=== PATIENT | female | born 1970 | race African-American/Black ===

== ENCOUNTER 2018-06-27 10:52 | Emergency (ER) | payer SELFPAY ==
[2018-06-27 11:01] VITALS: BP 141/78; PULSE 78; TEMP 98.3; BMI 24.7
--- NOTE | 2018-06-27 11:49 | PDOC ---
Documentation entered by Fabián Combs SCRIBE, acting as scribe for Shital Humphrey MD. Shital Humphrey MD: This documentation has been prepared by the angelyeGarret Daniel, SCRIBE, under my direction and personally reviewed by me in its entirety. I confirm that the documentation accurately reflects all work, treatment, procedures, and medical decision making performed by me. History of Present Illness - General Chief Complaint: Chest Pain Stated Complaint: CHEST PAIN Time Seen by Provider: 06/27/18 11:16 History Source: Patient Exam Limitations: No Limitations - History of Present Illness Initial Comments: 06/27/18 11:26 The patient is a 47 year old female with no past medical history here today for evaluation of chest pain. Patient reports that her chest pain began last night and continued until this morning. She describes her chest pain as localized to the left side, intermittent lasting a few minutes, and sharp. She reports that she had a similar episode of chest pain a long time ago but notes that she was told that she was healthy. Patient denies headache, lightheadedness. Denies fever, chills. Denies shortness of breath. Denies nausea, vomiting, diarrhea, abdominal pain. Denies lower extremity edema. Allergies: NKA Social history: Patient denies tobacco use. Past History - Past Medical History Allergies/Adverse Reactions: Allergies Allergy/AdvReac Type Severity Reaction Status Date / Time No Known Allergies Allergy Verified 03/11/16 16:03 Home Medications: Ambulatory Orders NK [No Known Home Medication] 03/11/16 Anemia: No - Surgical History Appendectomy: Yes (1994) - Reproductive History Cervical CA: No Dysfunctional Uterine Bleeding: No Ectopic : No Endometrial CA: No Polycystic Ovaries: No Tubal Ligation: No - Immunization History Immunization Up to Date: Yes - Suicide/Smoking/Psychosocial Hx Smoking History: Unknown if ever smoked Have you smoked in the past 12 months: No Hx Alcohol Use: No Drug/Substance Use Hx: No Substance Use Type: None Review of Systems - Review of Systems Able to Perform ROS?: Yes Comments:: 06/27/18 11:27 GENERAL/CONSTITUTIONAL: No fever or chills. No weakness. HEAD, EYES, EARS, NOSE AND THROAT: No change in vision. No ear pain or discharge. No sore throat. CARDIOVASCULAR: +chest pain. No shortness of breath. RESPIRATORY: No cough, wheezing, or hemoptysis. GASTROINTESTINAL: No nausea, vomiting, diarrhea or constipation. GENITOURINARY: No dysuria, frequency, or change in urination. MUSCULOSKELETAL: No joint or muscle swelling or pain. No neck or back pain. SKIN: No rash NEUROLOGIC: No headache, vertigo, loss of consciousness, or change in strength/ sensation. ENDOCRINE: No increased thirst. No abnormal weight change. HEMATOLOGIC/LYMPHATIC: No anemia, easy bleeding, or history of blood clots. ALLERGIC/IMMUNOLOGIC: No hives or skin allergy. *Physical Exam - Vital Signs Last Vital Signs Temp Pulse Resp BP Pulse Ox 98.3 F 78 18 141/78 100 06/27/18 10:55 06/27/18 10:55 06/27/18 10:55 06/27/18 10:55 06/27/18 10:55 - Physical Exam Comments: GENERAL: Awake, alert, and fully oriented, in no acute distress HEAD: No signs of trauma EYES: PERRLA, EOMI, sclera anicteric, conjunctiva clear ENT: Auricles normal inspection, hearing grossly normal, nares patent, oropharynx clear without exudates. Moist mucosa NECK: Normal ROM, supple, no lymphadenopathy, JVD, or masses LUNGS: Breath sounds equal, clear to auscultation bilaterally. No wheezes, and no crackles HEART: Regular rate and rhythm, normal S1 and S2, no murmurs, rubs or gallops ABDOMEN: Soft, nontender, normoactive bowel sounds. No guarding, no rebound. No masses EXTREMITIES: Normal range of motion, no edema. No clubbing or cyanosis. No cords, erythema, or tenderness NEUROLOGICAL: Cranial nerves II through XII grossly intact. Normal speech, normal gait. Motor and sensation intact SKIN: Warm, Dry, normal turgor, no rashes or lesions noted. Heart Score/ECG Review - History History: Slightly suspicious - Electrocardiogram EKG: Non specific repolarization disturbance - Age Age: </= 45 - Risk Factors Risk Factors Heart Score: No Hx Hypercholesterolemia, No Hx Hypertension, No Hx Diabetes, No Smoking History, No Positive family hx of cardiac disease, No Hx Obesity Based on the list above the patient has:: No risk factors known - Troponin Troponin: </= normal limit - Score Heart Score - Total: 1 - ECG Impressions Comment:: EKG 10:49- NSR 79 bpm, inv T V3-4. No ST changes. No priors available for comparison. ED Treatment Course - LABORATORY CBC & Chemistry Diagram: 06/27/18 11:32 06/27/18 11:32 - RADIOLOGY Radiology Studies Ordered: Category Date Time Status CHEST X-RAY PORTABLE* [RAD] Stat Radiology 06/27/18 11:34 Ordered Medical Decision Making - Medical Decision Making 06/27/18 11:45 Low risk for PE, ACS, dissection, AAA by clinical eval. Will send labs including troponin and get CXR. If all normal, will DC home. *DC/Admit/Observation/Transfer Diagnosis at time of Disposition: Chest pain Qualifiers: Chest pain type: unspecified Qualified Code(s): R07.9 - Chest pain, unspecified - Discharge Dispostion Disposition: HOME Condition at time of disposition: Stable Decision to Admit order: No - Referrals Referrals: Agueda Dobson MD [Primary Care Provider] - - Patient Instructions Printed Discharge Instructions: DI for Chest Pain - Post Discharge Activity
[2018-06-27 11:56] LABS: BASO % 0.6 % (0-2.0); EOS % 3.6 % (0-4.5); HEMATOCRIT 39.7 % (32.4-45.2); HEMOGLOBIN 13.2 GM/dL (10.7-15.3); LYMPH % 25.4 % (8-40); MCH 31.2 pg (25.7-33.7); MCHC 33.3 g/dl (32.0-36.0); MEAN CELL VOLUME 93.6 fl (80-96); MONO % 5.7 % (3.8-10.2); NEUT % 64.7 % (42.8-82.8); PLATELET COUNT 239 K/MM3 (134-434); RBC 4.24 M/mm3 (3.60-5.2); RDW 12.4 % (11.6-15.6); WHITE BLOOD COUNT 5.5 K/mm3 (4.0-10.0)
[2018-06-27 12:18] LABS: ALBUMIN 3.7 g/dl (3.4-5.0); ALK PHOS 50 U/L (45-117); ANION GAP 6 MMOL/L (8-16); BILIRUBIN,TOTAL 0.3 mg/dL (0.2-1); BLOOD UREA NITROGEN 13 mg/dL (7-18); CALCIUM 8.9 mg/dL (8.5-10.1); CHLORIDE 105 mmol/L (98-107); CO2 29 mmol/L (21-32); CREATININE 0.7 mg/dL (0.55-1.3); GLUCOSE,RANDOM 77 mg/dL (74-106); POTASSIUM 4.1 mmol/L (3.5-5.1); SGOT/AST 15 U/L (15-37); SGPT/ALT 15 U/L (13-61); SODIUM 140 mmol/L (136-145); TOT PROT 7.4 g/dl (6.4-8.2)
--- NOTE | 2018-06-27 15:02 | EKG ---
Test Reason : Blood Pressure : / mmHG Vent. Rate : 079 BPM Atrial Rate : 079 BPM P-R Int : 150 ms QRS Dur : 098 ms QT Int : 372 ms P-R-T Axes : 073 -05 025 degrees QTc Int : 426 ms POOR DATA QUALITY, INTERPRETATION MAY BE ADVERSELY AFFECTED NORMAL SINUS RHYTHM LOW VOLTAGE QRS INCOMPLETE RIGHT BUNDLE BRANCH BLOCK BORDERLINE ECG NO PREVIOUS ECGS AVAILABLE Confirmed by JYOTI LUA MD ([id number]) on 06/27/2018 3:01:49 PM Referred By: Confirmed By:JYOTI LUA MD
== END 2018-06-27 13:22 | disposition home or self-care (01) ==
LOC: JER 10:52
DX: R07.9 Chest pain, unspecified (principal)
CPT/HCPCS: 36415; 71045-TC-FY; 80053; 84484; 84703; 85025; 93005; 93010; 99282-25

== ENCOUNTER 2022-01-21 11:03 | Emergency (ER) | payer OTHER ==
[2022-01-21 11:46] VITALS: BP 129/84; PULSE 6; RESP 18; TEMP 97.4; BMI 25.0
[2022-01-21] MEDS ORDERED: ACETAMINOPHEN 500 MG TABLET (FP) PO ONE (13:50)
[2022-01-21] MEDS ORDERED: LIDOCAINE 5% TOPICAL PATCH TP ONE (13:51)
[2022-01-21] MEDS ORDERED: ACETAMINOPHEN 500 MG TABLET (FP) ONE (13:56)
[2022-01-21] MEDS ORDERED: LIDOCAINE 5% TOPICAL PATCH ONE (13:56)
[2022-01-21] MEDS ORDERED: KETOROLAC TROMETHAMINE 60 MG/2 ML VIAL IM ONE (14:52)
[2022-01-21] MEDS ORDERED: METHOCARBAMOL 500 MG TABLET PO ONE (14:52)
[2022-01-21] MEDS ORDERED: METHOCARBAMOL 500 MG TABLET ONE (14:53)
[2022-01-21] MEDS ORDERED: KETOROLAC TROMETHAMINE 60 MG/2 ML VIAL ONE (14:53)
[2022-01-21] MEDS ORDERED: LIDOCAINE PATCH REMOVAL MC ONE (22:00)
== END 2022-01-21 16:25 | disposition home or self-care (01) ==
LOC: JERFT 11:03 → JER 11:03 → JERFT 16:25
PROC: 3E0233Z Introduction of Anti-inflammatory into Muscle, Percutaneous Approach (ICD-10-PCS; principal; 2022-01-21)
DX: M54.50 Low back pain, unspecified (principal)
CPT/HCPCS: 84703; 99284-25

== ENCOUNTER 2022-07-18 02:18 | Emergency (ER) | payer BC, OTHER ==
[2022-07-18 02:29] VITALS: BP 144/78; PULSE 75; RESP 18; TEMP 97.9; BMI 27.2
[2022-07-18] MEDS ORDERED: ACETAMINOPHEN 500 MG TABLET (FP) PO ONE (02:45)
[2022-07-18] MEDS ORDERED: BENZOCAINE/MENTH/CETYLPYRD CL 1 EACH LOZENGE MM PRN (02:46)
[2022-07-18] MEDS ORDERED: DEXAMETHASONE LIQUID 0.5 MG/5 ML PO ONE (02:46)
[2022-07-18] MEDS ORDERED: ACETAMINOPHEN 325 MG TABLET (FP) ONE (02:48)
[2022-07-18] MEDS ORDERED: DEXAMETHASONE SOD PHOSPHATE 10 MG/1 ML VIAL ONE (02:49)
[2022-07-18] MEDS ORDERED: BENZOCAINE/MENTH/CETYLPYRD CL 1 EACH LOZENGE MM ONE (02:53)
[2022-07-18] MEDS ORDERED: ALBUTEROL SO4 2.5/IPRATROPIUM 0.5 INH SOL 3 ML VIAL.NEB. NEB ONE (13:01)
== END 2022-07-18 02:57 | disposition home or self-care (01) ==
LOC: JER 02:18
PROC: 3E0F7GC Introduction of Other Therapeutic Substance into Respiratory Tract, Via Natural or Artificial Opening (ICD-10-PCS; principal; 2022-07-18)
DX: J02.9 Acute pharyngitis, unspecified (principal)
CPT/HCPCS: 87070; 99283-25

== ENCOUNTER 2023-02-28 16:21 | Emergency (ER) | payer BC, OTHER ==
[2023-02-28 16:45] VITALS: BP 135/77; PULSE 74; RESP 20; TEMP 99; BMI 26.6
[2023-02-28] MEDS ORDERED: IBUPROFEN 600 MG TABLET (FP) PO ONE ×2 (18:29→18:40)
[2023-02-28] MEDS ORDERED: ACETAMINOPHEN 500 MG TABLET (FP) PO ONE (18:29)
[2023-02-28] MEDS ORDERED: ACETAMINOPHEN 325 MG TABLET (FP) ONE (18:40)
== END 2023-02-28 18:57 | disposition home or self-care (01) ==
LOC: JER 16:21 → JERFT 16:21
DX: R53.81 Other malaise (principal); M79.10 Myalgia, unspecified site; R11.2 Nausea with vomiting, unspecified; U07.1 COVID-19
CPT/HCPCS: 0241U-QW; 99283-25